=== PATIENT | female | born 1950 | race African-American/Black ===

== ENCOUNTER 2023-10-21 03:59 | Inpatient (IN) | payer MEDICARE ==
[~2023-10-21] VITALS: Ht 165.1 cm; Wt 67.8 kg
[~2023-10-21 03:59] MED LIST: DOCU-138 PO; IRON-15 PO; OMEP20CA4 PO
[2023-10-21 04:12] VITALS: O2SAT 100
[2023-10-21 05:04] LABS: BASOPHILS % 0.4 % (0.0-2.0); HEMATOCRIT. 38.3 % (36.0-48.0); LYMPHOCYTES % 10.4 % (20.0-50.0); MEAN CORPUSCULAR HEMOGLOBIN 29.3 pg (28.0-32.0); MEAN CORPUSCULAR HGB CONC 33.8 g/dL (31.0-37.0); MEAN CORPUSCULAR VOLUME 86.6 fL (81.0-99.0); MEAN PLATELET VOLUME 8.6 fl (7.4-10.4); MONOCYTES % 3.3 % (2.0-8.0); NEUTROPHILS % 85.9 % (40.0-76.0); PLATELET 272 x1000/uL (130-400); RED BLOOD CELL COUNT 4.43 mill/uL (4.2-5.4); RED CELL DISTRIBUTION WIDTH 14.4 % (11.6-14.6); WHITE BLOOD COUNT 8.3 x1000/uL (4.5-11.0)
[2023-10-21 05:11] LABS: CHLORIDE 105 mEq/L (98-107); POTASSIUM 3.5 mEq/L (3.5-5.1); SODIUM 135 mEq/L (136-145)
[2023-10-21 05:12] LABS: CARBON DIOXIDE 20 mEq/L (21-32)
[2023-10-21 05:13] LABS: CALCIUM 11.7 mg/dL (8.7-10.4)
[2023-10-21 05:17] LABS: CREATININE 0.8 mg/dL (0.6-1.0); GLUCOSE 206 mg/dL (70-105); UREA NITROGEN BLOOD 7 mg/dL (9-23)
[2023-10-21 05:19] LABS: ALANINE AMINOTRANSFERASE 38 IU/L (10-49); ALBUMIN 4.7 g/dL (3.2-4.8); ASPARTATE AMINOTRANSFERASE 26 IU/L (<34)
[2023-10-21 05:20] LABS: BILIRUBIN TOTAL 0.3 mg/dL (0.1-1.0); PROTEIN TOTAL 7.9 g/dL (6.0-8.3)
[2023-10-21] MEDS: METOCLOPRAMIDE HCL 10MG/2ML VIAL IV STA (05:55)
[2023-10-21] MEDS ORDERED: ACETAMINOPHEN 325MG TABLET PO STA (05:55)
[2023-10-21 06:31] LABS: CHLORIDE 104 mEq/L (98-107); POTASSIUM 3.6 mEq/L (3.5-5.1); SODIUM 135 mEq/L (136-145)
[2023-10-21 06:32] LABS: CALCIUM 11.9 mg/dL (8.7-10.4); CARBON DIOXIDE 19 mEq/L (21-32)
[2023-10-21 06:37] LABS: CREATININE 0.8 mg/dL (0.6-1.0); GLUCOSE 194 mg/dL (70-105); UREA NITROGEN BLOOD 9 mg/dL (9-23)
[2023-10-21 06:39] LABS: ALANINE AMINOTRANSFERASE 39 IU/L (10-49); ALBUMIN 4.8 g/dL (3.2-4.8); ASPARTATE AMINOTRANSFERASE 26 IU/L (<34); BILIRUBIN TOTAL 0.3 mg/dL (0.1-1.0)
[2023-10-21 06:43] LABS: PROTHROMBIN TIME 10.9 sec (9.6-11.0)
[2023-10-21 06:49] LABS: LACTIC ACID 2.2 mmol/L (0.4-2.0); TROPONIN I HIGH SENSITIVITY 48 ng/L (3.0-34)
[2023-10-21] MEDS: MAGNESIUM/ALUMINUM HYDROXIDE/SIMETHICONE 30ML UDC PO NR (09:49)
[2023-10-21] MEDS: FAMOTIDINE 20MG/2ML VIAL IV NR (09:49)
[2023-10-21] MEDS: METOCLOPRAMIDE HCL 10MG/2ML VIAL IV NR (09:49)
[2023-10-21] MEDS: ACETAMINOPHEN 325MG TABLET PO NR (09:50)
[2023-10-21] MEDS: SODIUM CHLORIDE 0.9% 1,000 ML IV ONE (09:50)
[2023-10-21] MEDS: FAMOTIDINE 20MG/2ML VIAL IV STA (10:12)
[2023-10-21] MEDS: MAGNESIUM/ALUMINUM HYDROXIDE/SIMETHICONE 30ML UDC PO STA (10:12)
[2023-10-21 11:25] LABS: TROPONIN I HIGH SENSITIVITY 49 ng/L (3.0-34)
[2023-10-21 12:55] LABS: CLARITY URINE CLEAR (CLEAR); COLOR URINE YELLOW (YELLOW); GLUCOSE URINE 1+ (NEGATIVE); KETONES URINE 1+ (NEGATIVE); LEUKOCYTE ESTERASE URINE NEGATIVE (NEGATIVE); NITRITE URINE NEGATIVE (NEGATIVE); OCCULT BLOOD URINE 1+ (NEGATIVE); PH URINE 6.5 (4.5-8.0); PROTEIN URINE 3+ (NEGATIVE); SPECIFIC GRAVITY URINE 1.019 (1.005-1.030); UROBILINOGEN URINE 0.2 E.U./dL (0.2-1.0)
[2023-10-21] MEDS ORDERED: DIPHENHYDRAMINE 50MG/ML VIAL IV PRN (13:00)
[2023-10-21] MEDS ORDERED: ONDANSETRON HCL 4MG/2ML INJ IV PRN (13:00)
[2023-10-21] MEDS ORDERED: IPRATROPIUM/ALBUTEROL 0.5-3(2.5)MG/3ML NEB HHN PRN (13:00)
[2023-10-21] MEDS ORDERED: MORPHINE SULFATE 2 MG/ML CPJ (NOT FOR IM USE) IV PRN (13:00)
[2023-10-21] MEDS ORDERED: NALOXONE HCL 0.4MG/ML VIAL IV PRN (13:00)
[2023-10-21 13:09] LABS: BACTERIA URINE TRACE; RBC URINE 0-2 /hpf (0-2); SQUAMOUS EPITHELIAL CELL URINE 2+ /lpf (RARE/1+); YEAST URINE NONE SEEN
[2023-10-21] MEDS ORDERED: AMLODIPINE 10MG TABLET PO SCH (13:15)
[2023-10-21] MEDS ORDERED: HYDRALAZINE 20MG/ML VIAL IV PRN (13:15)
[2023-10-21] MEDS: LABETALOL 5MG/ML SYR 20 MG/4 ML SYRINGE IV ONE (13:16)
[2023-10-21] MEDS: HYDRALAZINE HCL 25MG TABLET PO SCH (13:18)
[2023-10-21] MEDS: AMLODIPINE 5MG TABLET PO SCH (13:19)
[2023-10-21 17:24] VITALS: BP 144/53; PULSE 92; RESP 20; TEMP 98
[2023-10-21 17:36] LABS: TROPONIN I HIGH SENSITIVITY 56 ng/L (3.0-34)
[2023-10-21 18:00] VITALS: BP 168/71; PULSE 83; RESP 16; TEMP 98.1
[2023-10-21] MEDS ORDERED: DEXTROSE 50% WATER 50ML SYRINGE IV PRN (18:00)
[2023-10-21] MEDS: INSULIN LISPRO 100 UNITS/ML SUBCUT SCH (18:10)
[2023-10-21] MEDS: CLONIDINE 0.1MG TABLET PO PRN (18:45)
[2023-10-21] MEDS: HYDROCODONE/ACETAMINOPHEN 5/325MG TABLET PO PRN (18:53)
[2023-10-21 20:00] VITALS: BP 96/42; PULSE 72; RESP 20; TEMP 97.2
[2023-10-21] MEDS: BLOOD SUGAR DIAGNOSTIC STRIP TEST SCH (20:46)
[2023-10-22] VITALS: BP 96/42; PULSE 72; RESP 20; TEMP 98.1
[2023-10-22 00:29] LABS: TROPONIN I HIGH SENSITIVITY 67 ng/L (3.0-34)
[2023-10-22 05:39] VITALS: BP 108/62; PULSE 73; RESP 20; TEMP 97.8
[2023-10-22 08:00] VITALS: BP 111/58; PULSE 77; TEMP 97.8
[2023-10-22 12:00] VITALS: BP 119/63; PULSE 79; RESP 18; TEMP 97.7
[2023-10-22 16:00] VITALS: BP 123/70; PULSE 84; RESP 20; TEMP 98
[2023-10-22 16:42] LABS: BASOPHILS % 1.4 % (0.0-2.0); EOSINOPHILS % 0.8 % (0.0-5.0); HEMATOCRIT. 37.6 % (36.0-48.0); HEMOGLOBIN. 12.7 g/dL (12.0-16.0); LYMPHOCYTES % 36.9 % (20.0-50.0); MEAN CORPUSCULAR HEMOGLOBIN 29.3 pg (28.0-32.0); MEAN CORPUSCULAR HGB CONC 33.8 g/dL (31.0-37.0); MEAN CORPUSCULAR VOLUME 86.8 fL (81.0-99.0); MEAN PLATELET VOLUME 9.1 fl (7.4-10.4); MONOCYTES % 10.6 % (2.0-8.0); NEUTROPHILS % 50.3 % (40.0-76.0); PLATELET 273 x1000/uL (130-400); RED BLOOD CELL COUNT 4.34 mill/uL (4.2-5.4); RED CELL DISTRIBUTION WIDTH 14.1 % (11.6-14.6); WHITE BLOOD COUNT 7.1 x1000/uL (4.5-11.0)
[2023-10-22 16:47] LABS: CHLORIDE 103 mEq/L (98-107); POTASSIUM 3.4 mEq/L (3.5-5.1); SODIUM 135 mEq/L (136-145)
[2023-10-22 16:48] LABS: CALCIUM 11.4 mg/dL (8.7-10.4); CARBON DIOXIDE 24 mEq/L (21-32)
[2023-10-22 16:53] LABS: GLUCOSE 90 mg/dL (70-105); UREA NITROGEN BLOOD 16 mg/dL (9-23)
[2023-10-22 16:55] LABS: ALANINE AMINOTRANSFERASE 25 IU/L (10-49); ALBUMIN 4.3 g/dL (3.2-4.8); ASPARTATE AMINOTRANSFERASE 20 IU/L (<34); BILIRUBIN TOTAL 0.4 mg/dL (0.1-1.0); PROTEIN TOTAL 7.3 g/dL (6.0-8.3)
[2023-10-22] MEDS: POTASSIUM CHLORIDE 20MEQ TABLET SR PO SCH (17:26)
[2023-10-22] MEDS: ACETAMINOPHEN 325MG TABLET PO PRN (17:27)
[2023-10-22 17:55] LABS: TROPONIN I HIGH SENSITIVITY 61 ng/L (3.0-34)
[2023-10-22 20:00] VITALS: BP 118/60; PULSE 92; RESP 16; TEMP 97.8
[2023-10-23] VITALS: BP 135/61; PULSE 92; RESP 16; TEMP 98.6
[2023-10-23 04:00] VITALS: BP 143/69; PULSE 84; RESP 19; TEMP 97.8
[2023-10-23 08:00] VITALS: BP 156/76; PULSE 78; RESP 19; TEMP 97.8
[2023-10-23] MEDS ORDERED: AMLO5TAB88 PO (09:16)
[2023-10-23] MEDS ORDERED: HYDR25TA78 PO (09:16)
[2023-10-23 09:39] VITALS: BP 156/76; PULSE 84; RESP 19
== END 2023-10-23 12:19 | disposition home or self-care (01) | DRG 280 ==
LOC: EDSEX 03:59 → EDUNIT# 03:59 → ER 03:59 → 5WST 12:24 → EDBEDREQ 12:26 → 7WST 17:25
PROVIDERS: ADMIT Internal Medicine; ATTEND Internal Medicine
DX: I16.1 Hypertensive emergency (principal); U07.1 COVID-19; I21.A1 Myocardial infarction type 2; I10 Essential (primary) hypertension; E11.9 Type 2 diabetes mellitus without complications; R10.13 Epigastric pain; F17.210 Nicotine dependence, cigarettes, uncomplicated; E83.52 Hypercalcemia; Z90.710 Acquired absence of both cervix and uterus; Z88.6 Allergy status to analgesic agent; Z78.9 Other specified health status
CPT/HCPCS: 36415; 71045; 80053; 81003; 82330; 82962; 83605; 83880; 84484; 85025; 85379; 87426; 93005; 93306; 93970; 99285; C1893; J2765; J3490; J7030